=== PATIENT | female | born 1985 | race Caucasian/White ===

== ENCOUNTER 2017-04-06 13:40 | Emergency (ER) | payer OTHER ==
[~2017-04-06] VITALS: Ht 160 cm; Wt 62.7 kg
[~2017-04-06 13:40] MED LIST: AMOX TR-K CLV1 EAC4; AUGMENTIN875 MG PO; BENADRYL25 MG PO; COUMADIN,JANTOV10 MG PO; DOXYCYCLINE HY100 MG PO; IBUPROFEN800 MG; LEVONORGESTREL; MIRENA52 MG IY; NOHOMEMEDS; PEPTO BISMOL240 ML PO; PERCOCET 5/31 TABLET PO; REGLAN10 MG PO; TOPAMAX50 MG PO; TORADOL10 MG PO; TYLENOL EXTRA500 M1 PO; TYLENOL REGULA325 MG PO; [UNRECOGNIZED DRUG - REMARK]
[2017-04-06 14:51] LABS: HEMATOCRIT 42.3 % (36.0-46.0); HEMOGLOBIN 14.6 G/DL (11.9-15.5); MCH 32.3 PG (29.0-34.0); MCHC 34.5 G/DL (30.0-36.0); MCV 93.6 FL (83-99); PLATELET COUNT 282 K/uL (156-360); RBC DIS.WIDTH-CV 12.4 % (11.8-14.6); RBC DIS.WIDTH-SD 42.7 % (39-53); RED BLOOD COUNT 4.52 M/uL (3.80-5.20); WHITE BLOOD COUNT 11.4 K/uL (4.1-10.2)
[2017-04-06 15:02] LABS: CHLORIDE 105 mEq/L (99-109)
[2017-04-06 15:03] LABS: SODIUM 136 mEq/L (136-147)
[2017-04-06 15:04] LABS: GLUCOSE 89 mg/dL (70-99)
[2017-04-06 15:08] LABS: CREATININE 0.7 mg/dL (0.6-1.3); GFR ESTIMATE (CALCULATED) > 59 mL/min/
[2017-04-06 15:09] LABS: UREA NITROGEN (BUN) 9 mg/dL (9-23)
[2017-04-06 15:14] LABS: TROP-I INTERPRETATION NEGATIVE; TROPONIN-I < 0.01 ng/mL (0.0-0.30)
[2017-04-06 15:35] LABS: D-DIMER ELISA < 150.00 ng/mLDDU (<230)
[2017-04-06] MEDS ORDERED: NORCO 5/3251 TABLET PO (16:15)
[2017-04-06] MEDS ORDERED: ZOFRAN ODT8 MG PO (16:15)
[2017-04-06] MEDS ORDERED: MOTRIN600 MG PO (16:15)
[2017-04-06 16:27] VITALS: BP 108/79
== END 2017-04-06 16:28 | disposition home or self-care (01) ==
LOC: EME 13:40
PROVIDERS: Physician Assistant
DX: R07.89 Other chest pain (principal); K21.9 Gastro-esophageal reflux disease without esophagitis; F41.9 Anxiety disorder, unspecified; F32.9 Major depressive disorder, single episode, unspecified; F17.200 Nicotine dependence, unspecified, uncomplicated; Z86.711 Personal history of pulmonary embolism; Z88.5 Allergy status to narcotic agent; Z88.8 Allergy status to other drugs, medicaments and biological substances
CPT/HCPCS: 71046; 80048; 84484; 85027; 85379; 93005; 99281; 99284

== ENCOUNTER 2017-08-29 22:03 | Emergency (ER) | payer OTHER ==
[~2017-08-29] VITALS: Ht 160 cm; Wt 67.2 kg
[~2017-08-29 22:03] MED LIST changes: +MOTRIN600 MG PO; +NORCO 5/3251 TABLET PO; +ZOFRAN ODT8 MG PO
[2017-08-29 22:27] LABS: HEMATOCRIT 35.6 % (36.0-46.0); HEMOGLOBIN 12.2 G/DL (11.9-15.5); MCH 31.8 PG (29.0-34.0); MCHC 34.3 G/DL (30.0-36.0); MCV 92.7 FL (83-99); PLATELET COUNT 213 K/uL (156-360); RBC DIS.WIDTH-CV 11.8 % (11.8-14.6); RBC DIS.WIDTH-SD 40.2 % (39-53); RED BLOOD COUNT 3.84 M/uL (3.80-5.20); WHITE BLOOD COUNT 8.9 K/uL (4.1-10.2)
[2017-08-29 22:39] LABS: ALBUMIN 3.8 g/dL (3.2-4.8); CHLORIDE 106 mEq/L (99-109); POTASSIUM 3.8 mEq/L (3.7-5.4); SODIUM 140 mEq/L (136-147)
[2017-08-29 22:41] LABS: GLUCOSE 96 mg/dL (70-99); TOTAL PROTEIN 6.2 g/dL (6.4-8.3)
[2017-08-29 22:43] LABS: TOTAL BILIRUBIN 0.6 mg/dL (0.0-1.0)
[2017-08-29 22:45] LABS: ALKALINE PHOSPHATASE 65 IU/L (3-129); CREATININE 0.8 mg/dL (0.6-1.3); GFR ESTIMATE (CALCULATED) > 59 mL/min/
[2017-08-29 22:46] LABS: UREA NITROGEN (BUN) 10 mg/dL (9-23)
[2017-08-29 22:47] LABS: AST (GOT) 24 IU/L (2-34)
[2017-08-29 22:48] LABS: ALT (GPT) 15 IU/L (3-49)
[2017-08-29 22:53] LABS: QUANTITATIVE HCG < 4.0 MIU/ML
[2017-08-29 23:07] LABS: LIPASE 11 U/L (1.0-51.0)
[2017-08-29 23:15] LABS: D-DIMER ELISA < 150.00 ng/mLDDU (<230)
[2017-08-30 00:27] LABS: APPEARANCE CLEAR ((CLEAR)); BILIRUBIN NEGATIVE; BLOOD NEGATIVE; COLOR STRAW ((YELLOW)); GLUCOSE (STRIP) NEGATIVE; KETONES NEGATIVE; LEUKOCYTES NEGATIVE; NITRITE NEGATIVE; PROTEIN (STRIP) NEGATIVE; SPECIFIC GRAVITY 1.008 (1.000-1.030); UCUL ADDED? NO; UROBILINOGEN 0.2 MG/DL (0.2-1.0)
[2017-08-30] MEDS ORDERED: ZOFRAN4 MG PO (00:44)
[2017-08-30] MEDS ORDERED: PEPCID20 MG PO (00:44)
[2017-08-30 01:12] VITALS: BP 105/78
== END 2017-08-30 01:13 | disposition home or self-care (01) ==
LOC: EME 22:03
PROVIDERS: Emergency Medicine
DX: R10.13 Epigastric pain (principal); R07.9 Chest pain, unspecified; K21.9 Gastro-esophageal reflux disease without esophagitis; F32.9 Major depressive disorder, single episode, unspecified; F41.9 Anxiety disorder, unspecified; F17.200 Nicotine dependence, unspecified, uncomplicated; Z86.711 Personal history of pulmonary embolism; Z88.5 Allergy status to narcotic agent; Z88.8 Allergy status to other drugs, medicaments and biological substances
CPT/HCPCS: 71046; 80053; 81003; 83690; 84702; 85027; 85379; 93005; 99281; 99285; J2405; J7030; S0028